=== PATIENT | female | born 1970 | race Caucasian/White ===

== ENCOUNTER 2016-03-21 16:39 | Inpatient (IN) | payer OTHER ==
[~2016-03-21] VITALS: Ht 167.6 cm; Wt 82.9 kg
[~2016-03-21 16:39] MED LIST: AMARYL4 MG; AMARYL4 MG PO; ASCORBIC ACID500 M3 PO; ASPIR 8181 M1; ASPIR-LOW81 MG PO; ASPIRIN81 M2 PO; ATORVASTATIN CA10 MG PO; Amaryl PO; Aspirin E.C. PO; BACTRIM,SEPT1 TABLET PO; BUPROBAN150 MG PO; BUPROPION HCL150 M2 PO; BUPROPION XL150 MG PO; CELEXA20 MG PO; CELEXA40 MG PO; CEPHALEXIN500 MG PO; CILOSTAZOL100 MG PO; CIPRO500 MG; CIPROFLOXACIN500 M1 PO; CITALOPRAM HBR20 MG PO; DILAUDID2 MG PO; FENOFIBRATE145 M1 PO; FOLIC ACID1 MG PO; GLIMEPIRIDE4 MG PO; GLUCOPHAGE1000 MG PO; HUMALOG100 UNIT/1 SC; KEFLEX500 MG PO; LANTUS 10100 UNITS/ SC; LEVEMIR FL100 UNITS/ SC; LEVEMIR100 UNIT/2; LEVEMIR100 UNIT/2 SC; LEVETIRACE500 MG/51 IV; LIPITOR10 MG; LIPITOR10 MG PO; LISINOPRIL10 MG PO; LYRICA150 MG PO; LYRICA200 MG PO; LYRICA75 MG; LYRICA75 MG PO; METFORMIN HCL1000 MG PO; METOPROLOL PO; METOPROLOL SUCC25 MG PO; METOPROLOL TART25 MG PO; MORPHINE SULFAT30 M1 PO; MORPHINE SULFAT30 M2 PO; MORPHINE SULFAT30 M5; MORPHINE SULFAT30 M5 PO; NEURONTIN100 MG PO; NICOTINE PATCH1 EAC2 TD; NOVOLOG 10100 UNITS/ SC; NOVOLOG PE100 UNITS/ SC; OMEPRAZOLE40 M1 PO; OXYCODONE HCL10 MG PO; POTASSIUM-9999 MG PO; THERAGRAN1 TABLET PO; VITAMIN B 12 PO; VITAMIN B12-FO1 EACH PO; ZESTRIL,PRINIVI10 MG PO; ZOCOR20 MG PO
[2016-03-21 17:44] LABS: MCH 31.6 PG (29.0-34.0); MCHC 35.9 G/DL (30.0-36.0); MCV 88.2 FL (83-99); PLATELET COUNT 297 K/uL (156-360); RBC DIS.WIDTH-CV 13.3 % (11.8-14.6); RBC DIS.WIDTH-SD 41.9 % (39-53); RED BLOOD COUNT 4.65 M/uL (3.80-5.20)
[2016-03-21 18:01] LABS: CHLORIDE 103 mEq/L (99-109); POTASSIUM 3.9 mEq/L (3.7-5.4); SODIUM 139 mEq/L (136-147)
[2016-03-21 18:03] LABS: GLUCOSE 86 mg/dL (70-99)
[2016-03-21 18:05] LABS: ANION GAP 9 MEQ/L (2-14)
[2016-03-21 18:07] LABS: GFR ESTIMATE (CALCULATED) > 59 mL/min/
[2016-03-21 18:08] LABS: UREA NITROGEN (BUN) 5 mg/dL (9-23)
[2016-03-21 18:10] LABS: TROP-I INTERPRETATION NEGATIVE; TROPONIN-I < 0.01 ng/mL (0.0-0.30)
[2016-03-21 20:05] LABS: BASOPHIL COUNT 0.1 K/uL (0-0.1); EOSINOPHIL (%) 1.6 % (0-5); EOSINOPHIL COUNT 0.2 K/uL (0-0.3); IMMATURE GRANULOCYTE (%) 0.2 % (0.0-0.7); IMMATURE GRANULOCYTE COUNT 0.2 K/uL; LYMPHOCYTE COUNT 5.3 K/uL (1.0-2.8); MONOCYTE (%) 5.9 % (3-12); MONOCYTE COUNT 0.7 K/uL (0-0.8); NEUTROPHIL (%) 48.4 % (45-76); NEUTROPHIL COUNT 5.9 K/uL (1.8-6.4)
[2016-03-21 20:13] LABS: ADD MIUA? NO; BILIRUBIN NEGATIVE; BLOOD NEGATIVE; COLOR YELLOW ((YELLOW)); GLUCOSE (STRIP) NEGATIVE; KETONES NEGATIVE; LEUKOCYTES NEGATIVE; NITRITE NEGATIVE; PROTEIN (STRIP) NEGATIVE; SPECIFIC GRAVITY 1.003 (1.000-1.030); UCUL ADDED? NO; UROBILINOGEN 0.2 MG/DL (0.2-1.0)
[2016-03-21 20:43] LABS: D-DIMER ELISA 0.42 mg/L FEU (< 0.57)
[2016-03-21] MEDS ORDERED: FENOFIBRATE134 M1 PO (21:46)
[2016-03-21] MEDS ORDERED: NOVOLOG PE100 UNITS/ SC (21:50)
[2016-03-21] MEDS ORDERED: AMARYL2 MG PO (21:51)
[2016-03-21] MEDS ORDERED: TRESIBA FL200 UNIT/1 SC (21:51)
[2016-03-21] MEDS ORDERED: TYLENOL EXTRA500 MG PO (21:52)
[2016-03-21] MEDS ORDERED: [UNRECOGNIZED DRUG - REMARK] BOTH EYES (21:53)
[2016-03-21 22:18] LABS: PROTHROMBIN TIME 9.7 (9.2-11.2); PTT 25.6 (25-32)
[2016-03-22] VITALS: BP 99/56
[2016-03-22 02:34] VITALS: BP 104/59
[2016-03-22 02:44] LABS: METH RESISTANT S AUREUS PCR NEGATIVE (NEGATIVE)
[2016-03-22 02:52] LABS: PROBE CHECK PASS; SPECIMEN PROCESSING CONTROL PASS
[2016-03-22 04:50] VITALS: BP 115/64
[2016-03-22 04:50] LABS: HEMATOCRIT 37.1 % (36.0-46.0); MCH 30.9 PG (29.0-34.0); MCHC 34.8 G/DL (30.0-36.0); MCV 88.8 FL (83-99); MEAN PLAT.VOLUME 9.8 uM^3 (9.5-12.4); PLATELET COUNT 258 K/uL (156-360); RBC DIS.WIDTH-CV 13.4 % (11.8-14.6); RBC DIS.WIDTH-SD 42.6 % (39-53); RED BLOOD COUNT 4.18 M/uL (3.80-5.20); WHITE BLOOD COUNT 9.8 K/uL (4.1-10.2)
[2016-03-22 05:01] LABS: CHLORIDE 104 mEq/L (99-109); POTASSIUM 4.2 mEq/L (3.7-5.4); SODIUM 137 mEq/L (136-147)
[2016-03-22 05:05] LABS: ANION GAP 7 MEQ/L (2-14); TOTAL BILIRUBIN 0.2 mg/dL (0.0-1.0)
[2016-03-22 05:07] LABS: ALKALINE PHOSPHATASE 94 IU/L (3-129); GFR ESTIMATE (CALCULATED) > 59 mL/min/
[2016-03-22 05:08] LABS: UREA NITROGEN (BUN) 5 mg/dL (9-23)
[2016-03-22 05:09] LABS: GLUCOSE 291 mg/dL (70-99)
[2016-03-22 07:30] VITALS: BP 117/61
[2016-03-22 07:36] LABS: POINT-OF-CARE METER ID UU14149398
[2016-03-22 11:46] LABS: POINT-OF-CARE METER ID UU14149398
[2016-03-22] MEDS ORDERED: ELIQUIS5 MG PO (14:07)
[2016-03-22 15:34] VITALS: BP 105/55
== END 2016-03-22 17:37 | disposition home or self-care (01) | DRG 176 ==
LOC: EME 16:39 → EDOF 22:51 → 4SOUTH 03-22 00:29
PROVIDERS: Emergency Medicine; Hospitalist
DX: I26.99 Other pulmonary embolism without acute cor pulmonale (principal); I25.2 Old myocardial infarction; G89.29 Other chronic pain; I10 Essential (primary) hypertension; E78.5 Hyperlipidemia, unspecified; F32.9 Major depressive disorder, single episode, unspecified; K21.9 Gastro-esophageal reflux disease without esophagitis; F17.200 Nicotine dependence, unspecified, uncomplicated; E11.65 Type 2 diabetes mellitus with hyperglycemia; I25.10 Atherosclerotic heart disease of native coronary artery without angina pectoris; I73.9 Peripheral vascular disease, unspecified; J44.9 Chronic obstructive pulmonary disease, unspecified; E66.01 Morbid (severe) obesity due to excess calories; G56.30 Lesion of radial nerve, unspecified upper limb; Z68.29 Body mass index [BMI] 29.0-29.9, adult; Z89.511 Acquired absence of right leg below knee; Z89.512 Acquired absence of left leg below knee; G47.30 Sleep apnea, unspecified
CPT/HCPCS: 71020; 71275; 80048; 80053; 81003; 82948; 83605; 84484; 85025; 85027; 85379; 85610; 85730; 87040; 87641; 93005; 93970; 94799; 99281; 99285; J1170; J1815; J2270; J2405; J7030

== ENCOUNTER 2016-05-02 10:40 | Emergency (ER) | payer OTHER ==
[~2016-05-02] VITALS: Ht 167.6 cm; Wt 87.0 kg
[~2016-05-02 10:40] MED LIST changes: +AMARYL2 MG PO; +ELIQUIS5 MG PO; +FENOFIBRATE134 M1 PO; +TRESIBA FL200 UNIT/1 SC; +TYLENOL EXTRA500 MG PO; +[UNRECOGNIZED DRUG - REMARK] BOTH EYES
[2016-05-02 14:07] LABS: HEMATOCRIT 35.6 % (36.0-46.0); MCH 31.3 PG (29.0-34.0); MCHC 35.1 G/DL (30.0-36.0); MCV 89.2 FL (83-99); MEAN PLAT.VOLUME 9.5 uM^3 (9.5-12.4); PLATELET COUNT 236 K/uL (156-360); RBC DIS.WIDTH-CV 13.5 % (11.8-14.6); RBC DIS.WIDTH-SD 42.9 % (39-53); RED BLOOD COUNT 3.99 M/uL (3.80-5.20); WHITE BLOOD COUNT 9.7 K/uL (4.1-10.2)
[2016-05-02 14:17] LABS: CHLORIDE 104 mEq/L (99-109); POTASSIUM 3.6 mEq/L (3.7-5.4); SODIUM 139 mEq/L (136-147)
[2016-05-02 14:19] LABS: GLUCOSE 162 mg/dL (70-99)
[2016-05-02 14:20] LABS: ANION GAP 8 MEQ/L (2-14)
[2016-05-02 14:21] LABS: TOTAL BILIRUBIN 0.4 mg/dL (0.0-1.0)
[2016-05-02 14:22] LABS: ALKALINE PHOSPHATASE 73 IU/L (3-129)
[2016-05-02 14:23] LABS: GFR ESTIMATE (CALCULATED) > 59 mL/min/
[2016-05-02 14:24] LABS: UREA NITROGEN (BUN) 5 mg/dL (9-23)
[2016-05-02] MEDS ORDERED: CLEOCIN150 MG PO (16:22)
[2016-05-02 16:39] VITALS: BP 99/67
== END 2016-05-02 16:39 | disposition home or self-care (01) ==
LOC: EME 10:40
PROVIDERS: Nurse Practitioner Family
DX: L03.221 Cellulitis of neck (principal); H92.01 Otalgia, right ear; E11.65 Type 2 diabetes mellitus with hyperglycemia; J44.9 Chronic obstructive pulmonary disease, unspecified; E78.5 Hyperlipidemia, unspecified; I25.2 Old myocardial infarction; Z72.0 Tobacco use
CPT/HCPCS: 70491; 71020; 80053; 85027; 94640; 99281; 99284; J1885; J7030